=== PATIENT | female | born 1995 | race Asian ===

== ENCOUNTER 2017-02-04 00:58 | Emergency (ER) | payer OTHER ==
[2017-02-04 01:09] VITALS: BP 98/77
--- NOTE | 2017-02-15 10:49 | ED ---
Laceration/Wound HPI - HPI Summary HPI Summary: Patient presents with a small puncture wound to her left index finger that bleed profusely at the time but is now controlled. She has minimal pain and her tetanus is up to date. - History of Current Complaint Stated Complaint: LT FINGER LAC Time Seen by Provider: 02/04/17 01:18 Hx Obtained From: Patient Mechanism of Injury: Sharp/Blunt Trauma Onset/Duration: Sudden Onset Aggravating: Nothing Alleviating: Nothing Timing: Constant Onset Severity: Moderate Current Severity: Mild Pain Intensity: 2 Associated Signs & Symptoms: Pain Related Hx: Dominant Hand (Right) - Allergy/Home Medications Allergies/Adverse Reactions: Allergies Allergy/AdvReac Type Severity Reaction Status Date / Time No Known Allergies Allergy Verified 02/04/17 01:07 PMH/Surg Hx/FS Hx/Imm Hx Previously Healthy: Yes Infectious Disease History: Denies: Traveled Outside the [place] in Last 30 Days - Family History Known Family History: Positive: None - Social History Occupation: Student Lives: Alone Alcohol Use: Rare Substance Use Type: Reports: None Smoking Status (MU): Never Smoked Tobacco Review of Systems Negative: Myalgia, Decreased ROM, Edema Positive: Other - pin head size puncture wound to tip of left index finger Negative: Paresthesia, Numbness All Other Systems Reviewed And Are Negative: Yes Physical Exam Triage Information Reviewed: Yes Vital Signs On Initial Exam: Initial Vitals Temp Pulse Resp BP Pulse Ox 98.2 F 86 16 98/77 100 02/04/17 01:06 02/04/17 01:06 02/04/17 01:06 02/04/17 01:06 02/04/17 01:06 Vital Signs Reviewed: Yes Appearance: Positive: Well-Appearing, No Pain Distress, Well-Nourished Skin: Positive: Warm, Skin Color Reflects Adequate Perfusion, Dry, Tender - pin head size puncture wound to tip of left index finger, Soft Head/Face: Positive: Normal Head/Face Inspection Eyes: Positive: EOMI, ALDA, Conjunctiva Clear ENT: Positive: Hearing grossly normal Respiratory/Lung Sounds: Positive: Breath Sounds Present Cardiovascular: Positive: RRR Musculoskeletal: Positive: Strength/ROM Intact, Pain @ - tip of left index finger. Negative: Edema Left Neurological: Positive: Sensory/Motor Intact, Alert, Oriented to Person Place, Time, NV Bundle Intact Distally Psychiatric: Positive: Affect/Mood Appropriate AVPU Assessment: Alert Diagnostics - Vital Signs Vital Signs Temp Pulse Resp BP Pulse Ox 02/04/17 01:06 98.2 F 86 16 98/77 100 - Laboratory Lab Statement: Any lab studies that have been ordered have been reviewed, and results considered in the medical decision making process. Laceration Repair Course/Dx - Differential Dx Differental Diagnoses: Abrasion, Avulsion, Dehiscence, Hematoma, Laceration, Puncture Wound - Clinical Impression Provider Diagnoses: Puncture wound Discharge - Discharge Plan Condition: Stable Disposition: HOME Patient Education Materials: Puncture Wound (ED) [facility] - Additional Instructions: You can clean your wound with soap and water, and then pat dry. Cover with a bandaid as needed. Elevate your hand above your heart to decrease pain and swelling. Use ibuprofen 400mg three times daily with meals as needed for pain. Follow-up with [facility] as needed.
== END 2017-02-04 01:24 | disposition home or self-care (01) ==
LOC: EDBD → ED 00:58
DX: S61.231A Puncture wound without foreign body of left index finger without damage to nail, initial encounter (principal); X58.XXXA Exposure to other specified factors, initial encounter; Y93.9 Activity, unspecified; Y92.9 Unspecified place or not applicable; Y99.9 Unspecified external cause status
CPT/HCPCS: 99281

== ENCOUNTER 2019-02-05 19:38 | Emergency (ER) | payer OTHER ==
[2019-02-05] MEDS ORDERED: EPINEPHRINE 1 MG/ML 1 ML VIAL IM ONE (19:45)
[2019-02-05] MEDS ORDERED: Famotidine TAB* 20 MG PO ONE (19:45)
[2019-02-05] MEDS ORDERED: Dexamethasone TAB* 4 MG PO ONE (19:52)
[2019-02-05 19:53] VITALS: BP 107/71
--- NOTE | 2019-02-05 20:01 | UC ---
Allergic Reaction HPI - HPI Summary HPI Summary: 23-year-old otherwise healthy female presents with urticaria and itching since 3 PM. She states she was here last night was treated with intramuscular Benadryl and steroid with improvement. She is unsure what may have caused her symptoms is states she had both dairy and eggs both last night and tonight. She denies any systemic symptoms to include weakness, nausea vomiting, left tongue or throat swelling or difficulty breathing. She has not had anaphylaxis in the past. She is currently on her menstrual period. - History of Current Complaint Stated Complaint: RASH Time Seen by Provider: 02/05/19 19:44 Hx Obtained From: Patient Hx Last Menstrual Period: has it now Pain Intensity: 0 - Allergies/Home Medications Allergies/Adverse Reactions: Allergies Allergy/AdvReac Type Severity Reaction Status Date / Time No Known Allergies Allergy Verified 12/29/17 07:20 PMH/Surg Hx/FS Hx/Imm Hx Previously Healthy: Yes - Surgical History Surgical History: None Surgery Procedure, Year, and Place: none - Family History Known Family History: Positive: None, Other - Denies severe allergies Negative: Cardiac Disease, Hypertension, Diabetes - Social History Occupation: Student Alcohol Use: Rare Substance Use Type: None Smoking Status (MU): Never Smoked Tobacco Review of Systems All Other Systems Reviewed And Are Negative: Yes Constitutional: Negative: Fever Skin: Positive: Rash Eyes: Positive: Negative ENT: Negative: Nasal Discharge Respiratory: Negative: Shortness Of Breath Cardiovascular: Positive: Negative Gastrointestinal: Negative: Vomiting, Nausea Genitourinary: Positive: Negative Physical Exam Appearance: Well-Appearing, No Pain Distress, Well-Nourished Vital Signs: Initial Vital Signs Temp 98.4 F 02/05/19 19:44 Pulse 71 02/05/19 19:44 Resp 16 02/05/19 19:44 BP 107/71 02/05/19 19:44 Pulse Ox 100 02/05/19 19:44 Eyes: Positive: Conjunctiva Clear ENT: Positive: Other - No lip, tongue or uvula swelling Neck: Positive: Supple - No stridor Respiratory: Positive: Lungs clear Cardiovascular: Positive: RRR Musculoskeletal: Positive: ROM Intact Neurological: Positive: Alert Skin: Positive: Rashes - Diffuse urticaria Re-Evaluation - Re-Evaluation First Eval Change: Improved - With epinephrine and oral Pepcid Allergic Reaction Course/Dx - Course Course Of Treatment: Recurrent urticaria without severe allergy symptoms. Epinephrine given here and EpiPen prescribed. Continue Benadryl and steroid outpatient. Also given Pepcid here and prescription for same. Follow up for allergy testing. - Differential Dx/Diagnosis Differential Diagnosis/HQI/PQRI: Anaphylaxis, Angioedema, Local Allergic Reaction Provider Diagnosis: Urticaria, Allergic reaction Discharge - Sign-Out/Discharge Documenting (check all that apply): Patient Departure All imaging exams completed and their final reports reviewed: No Studies - Discharge Plan Condition: Improved Disposition: HOME Prescriptions: EPINEPHrine [Epipen 2-Axel] 0.3 mg IM ONCE PRN #1 unit PRN Reason: severe allergy symptoms Famotidine TAB* [Pepcid 20 MG TAB*] 40 mg PO BID PRN #30 tab PRN Reason: Allergy Symptoms Patient Education Materials: General Allergic Reaction (ED) Referrals: [facility] [Provider Group] Additional Instructions: Return with difficulty breathing, worse, new symptoms or other concerns. Continue Benadryl and steroid. EpiPen for serious symptoms. Follow-up with [facility] who may be L to arrange allergy testing. Journal all dietary and other exposures if you have additional symptoms. - Billing Disposition and Condition Condition: IMPROVED Disposition: Home
[2019-02-05] MEDS ORDERED: diPHENhydraMINE PO* 25 MG PO ONE (20:15)
== END 2019-02-05 20:27 | disposition home or self-care (01) ==
LOC: UCEAST 19:38
DX: L50.9 Urticaria, unspecified (principal); T78.40XA Allergy, unspecified, initial encounter; X58.XXXA Exposure to other specified factors, initial encounter
CPT/HCPCS: 96372; 99212; A9270-GY; G0463; J8540